=== PATIENT | female | born 1995 | race Caucasian/White ===

== ENCOUNTER 2017-07-04 23:39 | Emergency (ER) | payer MEDICAID ==
[2017-07-05] MEDS: KETOROLAC 30 MG INJ IM (04:37)
== END 2017-07-05 04:40 | disposition home or self-care (01) ==
LOC: FTE 23:39
DX: K08.89 Other specified disorders of teeth and supporting structures (principal)
CPT/HCPCS: 81025; 96372; 99284-25

== ENCOUNTER 2017-07-13 21:23 | Emergency (ER) | payer MEDICAID ==
[2017-07-14 00:31] LABS: ADD MAN DIFF? NO
[2017-07-14 00:35] LABS: BASOPHIL # 0.1 10^3/ul (0.0-0.1); BASOPHILS % 0.7 % (0.0-2.0); EOSINOPHILS # 0.3 10^3/ul (0.0-0.5); EOSINOPHILS % 3.9 % (0.0-7.0); HEMATOCRIT 36.3 % (37.0-47.0); HEMOGLOBIN 11.5 g/dl (12.0-16.0); LYMPHOCYTES # 2.8 10^3/ul (0.8-2.9); LYMPHOCYTES % 36.6 % (15.0-51.0); MEAN CORPUSCULAR HEMOGLOBIN 25.6 pg (29.0-33.0); MEAN CORPUSCULAR HGB CONC 31.7 g/dl (32.0-37.0); MEAN CORPUSCULAR VOLUME 80.8 fl (82.0-101.0); MEAN PLATELET VOLUME 10.6 fl (7.4-10.4); MONOCYTE # 0.4 10^3/ul (0.3-0.9); MONOCYTES % 4.6 % (0.0-11.0); NEUTROPHIL # 4.1 10^3/ul (1.6-7.5); NEUTROPHILS % 54.1 % (39.0-77.0); PLATELET COUNT 387 10^3/UL (140-415); RED BLOOD COUNT 4.49 10^6/ul (4.20-5.40); RED CELL DISTRIBUTION WIDTH 13.6 % (11.5-14.5)
[2017-07-14 00:35] LABS: WHITE BLOOD COUNT 7.6 10^3/ul (4.8-10.8)
[2017-07-14 01:02] LABS: ANION GAP 20 (8-16); BLOOD UREA NITROGEN 12 mg/dl (7-20); CALCIUM 9.6 mg/dl (8.4-10.2); CARBON DIOXIDE 24 mmol/L (21-31); CHLORIDE 105 mmol/L (97-110); CREATININE 0.67 mg/dl (0.44-1.00); GLUCOSE 95 mg/dl (70-220); POTASSIUM 3.8 mmol/L (3.5-5.1); SODIUM 145 mmol/L (135-144)
== END 2017-07-14 02:15 | disposition home or self-care (01) ==
LOC: FTE 21:23
DX: N93.9 Abnormal uterine and vaginal bleeding, unspecified (principal); R10.2 Pelvic and perineal pain; Z97.5 Presence of (intrauterine) contraceptive device
CPT/HCPCS: 76830; 76856; 80048; 81025; 84702; 85025; 99285-25

== ENCOUNTER 2018-04-01 00:52 | Emergency (ER) | payer MEDICAID ==
[2018-04-01] MEDS: LIDOCAINE 1% (MDV) 20 ML INJ SC (01:59)
[2018-04-01] MEDS: BACITRACIN 0.9 GM OINT TOP (02:54)
== END 2018-04-01 03:00 | disposition home or self-care (01) ==
LOC: FTE 00:52
DX: L03.011 Cellulitis of right finger (principal); L02.511 Cutaneous abscess of right hand
CPT/HCPCS: 10060; 73130-RT; 99283-25